=== PATIENT | male | born 1965 | race Caucasian/White ===

== ENCOUNTER 2021-02-01 16:26 | Emergency (ER) | payer OTHER, SELFPAY ==
[2021-02-01 16:31] VITALS: BP 175/96; PULSE 119; RESP 18; TEMP 37; O2SAT 98; BMI 30.4
[2021-02-01 16:59] LABS: Appearance Urine UA CLEAR; Bilirubin Urine UA NEGATIVE (NEGATIVE); Color Urine UA YELLOW; Glucose Urine UA NEGATIVE (Negative); Ketones Urine UA NEGATIVE (NEGATIVE); Leukocyte Esterase Urine UA NEGATIVE (NEGATIVE); Nitrite Urine UA NEGATIVE (Negative); Occult Blood Urine UA 3+ (Negative); Protein Urine UA NEGATIVE (Negative); Urobilinogen Urine UA 0.2 E.U./dL (0.2); WBC Urine None Seen (0-5/HPF); pH Urine UA 5.5 (4.5-8.0)
[2021-02-01 17:14] LABS: RBC Urine 5-10/HPF (0-5/HPF)
[2021-02-01 17:15] LABS: Bacteria Urine Few (2-10); Culture Indicated Urine Cult Not Indicated
--- NOTE | 2021-02-01 18:11 | DI.CT.S_ITS ---
PROCEDURE: CT KIDNEY URETER BLADDER (KUB) INDICATIONS: R flank pain, hematuria, suspect stone TECHNIQUE: Noncontrast 5 mm thick sections acquired from the diaphragms to the symphysis. 5 mm thick coronal and sagittal reformats were then performed. For radiation dose reduction, the following was used: automated exposure control, adjustment of mA and/or kV according to patient size. COMPARISON: None. FINDINGS: Image quality: Excellent. Lung bases: Lung bases are clear. Heart size is normal. Small hiatal hernia. Urinary system: There is a 4 mm stone in the distal right ureter approximately 2 cm above the right UVJ. There is mild right hydronephrosis and perinephric stranding. No other urinary stones are seen. Both kidneys are normal in size. Mild right ureterectasis. The left ureter is non-dilated. Bladder wall is mildly thickened eccentrically involving the right anterior lateral wall; no calcified bladder stones. Other solid organs: There is hepatic steatosis. Liver is normal in size. Gallbladder is. Pancreas is normal in contours. Spleen is normal in size. No adrenal nodules. Peritoneum and bowel: Unenhanced bowel loops demonstrate normal wall thickness and caliber. A few colonic diverticula are present. No free fluid or air. Nodes and vessels: No retroperitoneal or mesenteric adenopathy by size criteria. Aorta and inferior vena cava are normal in caliber. Abdominal wall: A small fat containing umbilical hernia is noted. Pelvis: No free pelvic fluid. No inguinal adenopathy. Bilateral fat containing inguinal hernias are present. Bones: No suspicious bony lesions. No vertebral body compression fractures. IMPRESSION: 1. A 4 mm stone in the distal right ureter causing mild right hydronephrosis. 2. Mild bladder thickening eccentrically involving the right anterior lateral wall. Cannot rule out uroepithelial neoplasm. Recommend nonurgent cystoscopy for follow-up evaluation. 3. Diverticulosis without diverticulitis. 4. Hepatic steatosis. Dictated by: Jeff Chandler M.D. on 02/01/2021 at 18:43 Approved by: Jeff Chandler M.D. on 02/01/2021 at 18:48
[2021-02-01] MEDS: KETOROLAC 30 MG/ML VIAL 15 MG IV (18:53)
[2021-02-01] MEDS: SODIUM CHLORIDE 0.9% 1,000 ML 1000 ML IV (18:53)
[2021-02-01 18:58] LABS: Add Manual Diff / Slide Review NO; Basophils Absolute Auto 100 /uL (0-100); Basophils Percent Auto 0.8 % (0-2); Eosinophils Absolute Auto 100 /uL (0-450); Eosinophils Percent Auto 0.5 % (2-4); Hematocrit 47.1 % (41-53); Hemoglobin 15.6 g/dL (13.5-17.5); Lymphocytes Absolute Auto 1700 /uL (1100-4500); Lymphocytes Percent Auto 12.6 % (25-40); Mean Corpuscular HGB Conc 33.1 % (30-36); Mean Corpuscular Volume 84.7 fL (80-100); Monocytes Absolute Auto 500 /uL (0-900); Monocytes Percent Auto 3.3 % (3-14); Neutrophils Absolute Auto 11400 /uL (1500-7000); Neutrophils Percent Auto 82.8 % (50-75); Platelet Count 362 X10^3/uL (150-400); Red Blood Cell Count 5.57 X10^6/uL (4.5-5.9); Red Cell Distribution Width 13.6 % (11.6-14.8); White Blood Cell Count 13.8 X10^3/uL (4.5-11.0)
--- NOTE | 2021-02-01 19:11 | ED_ITS ---
HPI - General Adult General Chief complaint: Urogenital-Male Stated complaint: thinks he has a kidney stone Time Seen by Provider: 02/01/21 18:05 Source: patient Mode of arrival: Ambulatory Limitations: no limitations History of Present Illness HPI narrative: 55-year-old man with no significant past medical history presents with intermittent right flank pain occurring throughout the day. He woke this morning and thought that he had pulled his back. Was able go to work symptoms resolved and throughout the day of intermittently returned. Just prior to arrival in the emergency department they had gotten quite severe and again resolved completely by time of physical exam. He did note some hematuria developing later this afternoon. He describes no fevers, hesitancy, he does note some frequency, no constipation abdominal pain nausea or vomiting. No palpitations cough, chest pain dyspnea or lower extremity edema. He himself has never had an episode of kidney stones but he reports that his father has had multiple issues. Related Data Previous Rx's Medication Instructions Recorded nitrofurantoin monohyd/m-cryst 100 mg PO Q12H #14 cap 04/30/16 [Macrobid] Allergies Allergy/AdvReac Type Severity Reaction Status Date / Time No Known Drug Allergies Allergy Verified 02/01/21 16:31 Review of Systems Review of Systems Narrative: Remainder of complete review of systems is otherwise unremarkable except for that included in the HPI. Patient History Medical History Kidney stones Social History Smoking Status: Former smoker Smoking Status: Former smoker alcohol intake frequency: holidays/special occasions only Substance Use Type: does not use Exam Narrative Exam Narrative: General: Healthy appearing, in no acute distress. Able to give a complete and coherent history. Well-nourished well-developed HEENT: Moist mucous membranes, normal sclera with reactive pupils, Respiratory: Lungs are clear to auscultation, no wheezing no rales no rhonchi. Full and symmetrical air movement Cardiac: Regular rate and rhythm no murmurs no bruits Abdomen: Soft, nontender, good bowel tones, no flank pain Skin: Warm and dry, no rashes Neurologic: Grossly neurologically intact with no obvious asymmetries or abnormalities Extremities: No trauma, well perfused Psych: Cooperative, appropriate insight and affect Initial Vital Signs Initial Vital Signs: Vital Signs Temperature 98.6 F 02/01/21 16:31 Pulse Rate 119 H 02/01/21 16:31 Respiratory Rate 18 02/01/21 16:31 Blood Pressure 175/96 H 02/01/21 16:31 Pulse Oximetry 98 02/01/21 16:31 Course Orders Ordered: ED Orders 02/01/21 16:45 Urinalysis and Microscopic Stat 02/01/21 18:11 CT kidney ureter bladder (KUB) Stat 02/01/21 18:50 Complete Blood Count AUTO DIFF Stat Comprehensive Metabolic Panel Stat Discontinued Medications Sodium Chloride (Normal Saline 0.9%) 1,000 mls @ 1,000 mls/hr IV BOLUS ONE Stop: 02/01/21 19:09 Last Admin: 02/01/21 18:53 Dose: 1,000 mls/hr Documented by: [email or web address] Ketorolac Tromethamine (Ketorolac 30 Mg/Ml Vial) 15 mg IV NOW ONE Stop: 02/01/21 18:11 Last Admin: 02/01/21 18:53 Dose: 15 mg Documented by: [email or web address] Oxycodone/Acetaminophen (Oxycodone/Apap 5/325 Prepack) 1 bottle MISC SEEINSTR ONE Stop: 02/01/21 19:23 Tamsulosin HCl (Tamsulosin 0.4 Mg Capsule) 0.4 mg PO NOW ONE Stop: 02/01/21 19:23 Vital Signs Vital signs: Vital Signs - 8 hr 02/01/21 16:31 Temperature 98.6 F Pulse Rate 119 H Respiratory Rate 18 Blood Pressure 175/96 H Pulse Oximetry 98 Medical Decision Making Medical Records Medical records reviewed: Yes I reviewed the patient's medical records. Lab Data Lab results reviewed: Yes I reviewed the patient's lab results. Result diagrams: 02/01/21 18:50 02/01/21 18:50 Labs: Lab Results 02/01/21 02/01/21 02/01/21 Range/Units 16:45 18:50 18:50 WBC 13.8 H (4.5-11.0) X10^3/uL RBC 5.57 (4.5-5.9) X10^6/uL Hgb 15.6 (13.5-17.5) g/dL Hct 47.1 (41-53) % MCV 84.7 (80-100) fL MCH 28.0 (26-34) PG MCHC 33.1 (30-36) % RDW 13.6 (11.6-14.8) % Plt Count 362 (150-400) X10^3/uL Neut % (Auto) 82.8 H (50-75) % Lymph % (Auto) 12.6 L (25-40) % [place] % (Auto) 3.3 (3-14) % Eos % (Auto) 0.5 L (2-4) % Baso % (Auto) 0.8 (0-2) % Neut # (Auto) 44237 H (1932-3083) /uL Lymph # (Auto) 1700 (5007-3477) /uL [place] # (Auto) 500 (0-900) /uL Eos # (Auto) 100 (0-450) /uL Baso # (Auto) 100 (0-100) /uL Sodium 139 (137-145) mmol/L Potassium 3.7 (3.4-5.1) mmol/L Chloride 105 (98-107) mmol/L Carbon Dioxide 22 (22-32) mmol/L BUN 12 (9-20) mg/dL Creatinine 0.75 (0.66-1.25) mg/dL Estimated GFR > 60.0 (>60) mL/min BUN/Creatinine Ratio 16.0 (6-22) Glucose 110 H (70-100) mg/dL Calcium 10.0 (8.4-10.2) mg/dL Total Bilirubin 0.4 (0.2-1.3) mg/dL AST 36 (17-59) IU/L ALT 46 (<50) IU/L Alkaline Phosphatase 74 (38-126) U/L Total Protein 8.2 (6.3-8.2) g/dL Albumin 4.8 (3.5-5.0) g/dL Globulin 3.4 (1.7-4.1) g/dL Albumin/Globulin Ratio 1.4 (1.0-2.8) Urine Color Yellow Urine Appearance Clear Urine pH 5.5 (4.5-8.0) Ur Specific [employer] 1.010 (1.000-1.035) Urine Protein Negative (Negative) Urine Glucose (UA) Negative (Negative) g/dL Urine Ketones Negative (NEGATIVE) Urine Occult Blood 3+ H (Negative) Urine Nitrate Negative (Negative) Urine Bilirubin Negative (NEGATIVE) Urine Urobilinogen 0.2 (0.2) E.U./dL Ur Leukocyte Esterase Negative (NEGATIVE) Urine RBC 5-10/hpf H (0-5/HPF) Urine WBC None seen (0-5/HPF) Urine Bacteria Few (2-10) H (None) Ur Culture Indicated? Cult not indicated Imaging Data CT KUB: Radiologist's Impression: FINDINGS: Image quality: Excellent. Lung bases: Lung bases are clear. Heart size is normal. Small hiatal hernia. Urinary system: There is a 4 mm stone in the distal right ureter approximately 2 cm above the right UVJ. There is mild right hydronephrosis and perinephric stranding. No other urinary stones are seen. Both kidneys are normal in size. Mild right ureterectasis. The left ureter is non-dilated. Bladder wall is mildly thickened eccentrically involving the right anterior lateral wall; no calcified bladder stones. Other solid organs: There is hepatic steatosis. Liver is normal in size. Gallbladder is. Pancreas is normal in contours. Spleen is normal in size. No adrenal nodules. Peritoneum and bowel: Unenhanced bowel loops demonstrate normal wall thickness and caliber. A few colonic diverticula are present. No free fluid or air. Nodes and vessels: No retroperitoneal or mesenteric adenopathy by size criteria. Aorta and inferior vena cava are normal in caliber. Abdominal wall: A small fat containing umbilical hernia is noted. Pelvis: No free pelvic fluid. No inguinal adenopathy. Bilateral fat containing inguinal hernias are present. Bones: No suspicious bony lesions. No vertebral body compression fractures. IMPRESSION: 1. A 4 mm stone in the distal right ureter causing mild right hydronephrosis. 2. Mild bladder thickening eccentrically involving the right anterior lateral wall. Cannot rule out uroepithelial neoplasm. Recommend nonurgent cystoscopy for follow-up evaluation. 3. Diverticulosis without diverticulitis. 4. Hepatic steatosis. Dictated by: Jeff Chandler M.D. on 02/01/2021 at 18:43 MDM Narrative Medical decision making narrative: 55-year-old gentleman with intermittent right flank pain throughout the day with 4 mm stone in the distal right ureter causing mild right hydronephrosis. No evidence of infection. Pain is controlled at this time. This is his 1st instance of kidney stones. No alternative diagnoses for his pain are appreciated today, no zoster, appendicitis, diverticulitis trauma are appreciated. Will give him his 1st dose of Flomax today and sent him home with a strainer and pain medication as needed. Will ask him to follow-up with his primary care physician and he has complications to return to the emergency department Discharge Plan Departure Patient Disposition: Home Clinical Impression: Kidney stones, Ureterolithiasis Instructions: DI for Kidney Stones Activity Restrictions/Additional Instructions: Thank you for coming in today. You do in fact have a 4 mm kidney stone that is about 2 cm away from making it all the way to your bladder. Please take the tamsulosin daily until you have passed the stone. Using 400 mg of ibuprofen (2 [id number] pills) and 1 Tylenol every 6 hours can be very helpful in controlling pain. For severe pain you can use to ibuprofen and [address] while on Percocet and be aware that narcotics will make you constipated so using extra fiber or stool soft softeners are recommended Please follow-up with your primary care physician. If you develop fevers or intractable pain please return to the ER. Prescriptions: No Action nitrofurantoin monohyd/m-cryst [Macrobid] 100 MG capsule 100 mg PO Q12H Qty: 14 RF: 0
[2021-02-01 19:12] LABS: Alanine Aminotransferase 46 IU/L (<50); Albumin 4.8 g/dL (3.5-5.0); Albumin Globulin Ratio 1.4 (1.0-2.8); Alkaline Phosphatase 74 U/L (38-126); Aspartate Aminotransferase 36 IU/L (17-59); Bilirubin Total 0.4 mg/dL (0.2-1.3); Blood Urea Nitrogen 12 mg/dL (9-20); Carbon Dioxide 22 mmol/L (22-32); Chloride 105 mmol/L (98-107); Estimated Glomerular Filt Rate > 60.0 mL/min (>60); Globulin 3.4 g/dL (1.7-4.1); Glucose 110 mg/dL (70-100); HEMOLYSIS < 15 (0-50); Potassium 3.7 mmol/L (3.4-5.1); Sodium 139 mmol/L (137-145); Total Protein 8.2 g/dL (6.3-8.2)
[2021-02-01] MEDS: TAMSULOSIN 0.4 MG CAPSULE PO (19:37)
[2021-02-01] MEDS: OXYCODONE/APAP 5/325 PREPACK 1 BOTTLE MISC (19:37)
== END 2021-02-01 19:48 | disposition home or self-care (01) ==
PROVIDERS: Emergency Medicine; Emergency Provider Emergency Medicine
DX: N20.2 Calculus of kidney with calculus of ureter (principal)
CPT/HCPCS: 36415; 74176; 80053; 81001; 85025; 96361; 96374; 99284; J1885

== ENCOUNTER → 2025-01-18 07:25 | Outpatient (CLI) | payer OTHER, SELFPAY ==
[2025-01-18 08:24] LABS: Add Manual Diff / Slide Review NO; Basophils Absolute Auto 100 /uL (0-100); Basophils Percent Auto 1.3 % (0-2); Eosinophils Absolute Auto 200 /uL (0-450); Eosinophils Percent Auto 2.4 % (2-4); Hematocrit 45.7 % (41-53); Hemoglobin 15.7 g/dL (13.5-17.5); Lymphocytes Absolute Auto 2000 /uL (1100-4500); Lymphocytes Percent Auto 25.7 % (25-40); Mean Corpuscular HGB Conc 34.4 % (30-36); Mean Corpuscular Hemoglobin 28.8 PG (26-34); Mean Corpuscular Volume 83.8 fL (80-100); Monocytes Absolute Auto 500 /uL (0-900); Monocytes Percent Auto 5.8 % (3-14); Neutrophils Absolute Auto 5100 /uL (1500-7000); Neutrophils Percent Auto 64.8 % (50-75); Platelet Count 363 X10^3/uL (150-400); Red Blood Cell Count 5.45 X10^6/uL (4.5-5.9); Red Cell Distribution Width 14.1 % (11.6-14.8); White Blood Cell Count 7.9 X10^3/uL (4.5-11.0)
[2025-01-18 08:58] LABS: Hemoglobin A1C% w Est Avg Glu 5.6 % (4.0-6.0)
[2025-01-18 09:00] LABS: Alanine Aminotransferase 53 IU/L (<50); Albumin 4.6 g/dL (3.5-5.0); Albumin Globulin Ratio 1.6 (1.0-2.8); Alkaline Phosphatase 60 U/L (38-126); Aspartate Aminotransferase 42 IU/L (17-59); BUN Creatinine Ratio 17.6 (6-22); Bilirubin Total 0.6 mg/dL (0.2-1.3); Blood Urea Nitrogen 15 mg/dL (9-20); Calcium 9.7 mg/dL (8.4-10.2); Carbon Dioxide 24 mmol/L (22-32); Chloride 105 mmol/L (98-107); Cholesterol 218 mg/dL (140-199); Estimated Glomerular Filt Rate > 60 mL/min (>60); Globulin 2.8 g/dL (1.7-4.1); Glucose 108 mg/dL (70-99); HDL Cholesterol 37 mg/dL (40-60); HEMOLYSIS < 15 (0-50); LDL Cholesterol Calculated 149 mg/dL (<100); Potassium 4.2 mmol/L (3.4-5.1); Sodium 140 mmol/L (137-145); Total Protein 7.4 g/dL (6.3-8.2); Triglycerides 158 mg/dL (35-150)
[2025-01-18 09:24] LABS: Prostate Specific Antigen Scrn 0.842 ng/mL (0.1-4.0)
== END ==
PROVIDERS: PCP Family Medicine; Referring Provider Family Medicine; Visit Provider Family Medicine
DX: Z00.00 Encounter for general adult medical examination without abnormal findings (principal); Z12.5 Encounter for screening for malignant neoplasm of prostate; R03.0 Elevated blood-pressure reading, without diagnosis of hypertension; N20.0 Calculus of kidney
CPT/HCPCS: 36415; 80053; 80061; 83036; 85025; G0103